=== PATIENT | male | born 1990 | race Caucasian/White ===

== ENCOUNTER 2022-05-05 02:43 | Emergency (ER) | payer MEDICAID ==
[~2022-05-05] VITALS: Ht 177.8 cm; Wt 77.2 kg
[~2022-05-05 02:43] MED LIST: COROTSUS OT
[2022-05-05] MEDS ORDERED: LIDOcaine 1% W/epiNEPHrine 1:100,000 20ml vial SQ ONE (03:00)
--- NOTE | 2022-05-05 03:00 | NUR ---
[facility] CALLED. THEY WILL SEND [facility] TO INTERVIEW PT.
[2022-05-05] MEDS ORDERED: iohexol 300mg/ml 100ml inj. ONE (03:02)
--- NOTE | 2022-05-05 03:39 | NUR ---
CALLED [facility] AND ASKED FOR CT REPORT TO BE FAXED OVER TO US, PER
--- NOTE | 2022-05-05 04:10 | NUR ---
PT HAS BEEN INTERVIEWED BY POLICE
[2022-05-05 04:33] VITALS: BP 113/62
== END 2022-05-05 04:30 | disposition home or self-care (01) ==
LOC: ER 02:44
DX: S71.011A Laceration without foreign body, right hip, initial encounter (principal); Z72.89 Other problems related to lifestyle; Z79.899 Other long term (current) drug therapy; X58.XXXA Exposure to other specified factors, initial encounter; Y93.89 Activity, other specified; Y92.89 Other specified places as the place of occurrence of the external cause; Y99.8 Other external cause status
CPT/HCPCS: 12002; 74177; 99285; J3490; J7030; Q9967; A6449